=== PATIENT | female | born 1990 | race American Indian/Alaskan Native ===

== ENCOUNTER 2020-12-17 08:34 | Outpatient (CLI) | payer OTHER ==
--- NOTE | 2020-12-17 09:28 | XRay Report ---
LUMBAR SPINE 3 VIEWS 0852 INDICATION: BACK PAIN COMPARISON: None available. FINDINGS: Scoliosis is noted. Mild disc space narrowing is seen at L4-5 and L5-S1. Minimal degenerati ve changes are seen. No fractures or subluxations are noted. Signer Name: Giovanny Francis MD Signed: 12/17/2020 9:24 AM Workstation Name: [id number]
== END 2020-12-17 08:35 | disposition home or self-care (01) ==
LOC: XRAY 08:34
PROVIDERS: ATTEND Internal Medicine
DX: M47.817 Spondylosis without myelopathy or radiculopathy, lumbosacral region (principal); M48.07 Spinal stenosis, lumbosacral region; M41.87 Other forms of scoliosis, lumbosacral region
CPT/HCPCS: 72100